=== PATIENT | female | born 1935 | race Caucasian/White ===

== ENCOUNTER 2021-08-02 14:15 | Inpatient (IN) ==
[2021-08-02 14:20] VITALS: BMI 25.7
[2021-08-02 14:49] LABS: BASOPHILS % (AUTO) 0.3 % (0.2-1.0); EOSINOPHILS % (AUTO) 0.8 % (0.9-2.9); HEMATOCRIT 45.1 % (36.0-47.0); HEMOGLOBIN 15.2 g/dL (12.0-16.0); LYMPHOCYTES # (AUTO) 0.8 X10^3/uL (1.3-2.9); MEAN CORPUSCULAR HEMOGLOBIN 29.1 pg (27.0-34.0); MEAN CORPUSCULAR HGB CONC 33.6 g/dL (33.0-35.0); MEAN CORPUSCULAR VOLUME 86.5 fL (80.0-100.0); MEAN PLATELET VOLUME 8.1 fL (7.4-11.0); MONOCYTES # (AUTO) 0.6 x10^3/uL (0.3-0.8); MONOCYTES % (AUTO) 11.7 % (0.0-13.0); NEUTROPHILS # (AUTO) 3.8 x10^3/uL (2.2-4.8); NEUTROPHILS % (AUTO) 72.2 % (42.0-75.0); RED BLOOD COUNT 5.21 X10^6/uL (3.5-5.4); RED CELL DISTRIBUTION WIDTH 14.2 % (11.6-16.5); WHITE BLOOD COUNT 5.3 X10^3/uL (3.6-10.0)
[2021-08-02 15:18] LABS: CHLORIDE 96 mmol/L (98-107); SODIUM 134 mmol/L (136-145)
--- NOTE | 2021-08-02 15:36 | CT ---
HISTORYPAIN, SWELLING NEAR COLOSTOMYSTUDYABDOMEN/PELVIS W/O CONCOMPARISONNoneTECHNIQUENon-contrasted axial CT images of the abdomen and pelvis were obtained and reformatted into coronal and sagittal planes for further evaluation.Radiation dose: 563.00 mGy-cm total DLPFINDINGSLung bases are clear.Trace pericardial effusion.Left coronary artery calcifications.Small sliding-type hiatal hernia.Stomach appears normal.Solid visceral organs of the upper abdomen are unremarkable.Multiple calcified gallstones in the dependent portion of the gallbladder with no imaging findings of acute cholecystitis.No intra or extrahepatic biliary dilatation.Unremarkable appearance of the kidneys.No hydronephrosis, hydroureter or ureteral calculus.Unremarkable appearance of the urinary bladder.Yi pouch in place.Status post total colectomy.Numerous loops of fluid and gas-filled moderately dilated small bowel throughout the abdomen as well as a peristomal hernia at the ostomy site in the right anterior abdominal wall.Transition to decompression is near the distal small-bowel loop exiting to the ostomy along the right side of the abdominal wall defect at the ostomy site.Reproductive structures are unremarkable.No pneumoperitoneum.No significant fluid collection.No adenopathy.No acute osseous abnormality.[id number]-kl-[id number] multilevel degenerative disc disease without vertebral body height loss.Multilevel moderate degenerative joint disease in the lower lumbar spine.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 Numerous loops of fluid and gas-filled moderately dilated small bowel throughout the abdomen as well as a peristomal hernia at the ostomy site in the right anterior abdominal wall. Transition to decompression is near the distal small-bowel loop exiting to the ostomy along the right side of the abdominal wall defect at the ostomy site; consistent with a mild mechanical obstruction.2. Cholelithiasis without imaging findings of acute cholecystitis.3. Small sliding-type hiatal hernia.Electronically signed by: Temo Scherer (Aug 02, 2021 15:34:37)
[2021-08-02 15:48] LABS: ALANINE AMINOTRANSFERASE 18 Units/L (12-78); ALBUMIN 3.4 g/dL (3.4-5.0); ALKALINE PHOSPHATASE 97 Units/L (46-116); ASPARTATE AMINO TRANSFERASE 20 Units/L (15-37); BLOOD UREA NITROGEN 33 mg/dL (7-18); CALCIUM 9.3 mg/dL (8.5-10.1); CARBON DIOXIDE 28.8 mmol/L (21-32); COR NA(FOR HYPERGLY) 134 mmol/L (136-145); CREATININE 1.93 mg/dL (0.55-1.02); TOTAL PROTEIN 7.1 g/dL (6.4-8.2); eGFR NON BLACK RACES 26 (>60)
[2021-08-02] MEDS ORDERED: MORPHINE SULFATE INJ 2 MG INJ IVP ONE (16:20)
[2021-08-02] MEDS ORDERED: ZOFRAN INJ 4 MG VIAL IVP ONE (16:20)
[2021-08-02] MEDS ORDERED: MORPHINE SULFATE INJ 2 MG INJ ONE (16:21)
[2021-08-02] MEDS ORDERED: ZOFRAN INJ 4 MG VIAL ONE (16:22)
--- NOTE | 2021-08-02 16:33 | ED.ABDFE ---
HPI Time Seen Time Seen by Provider: 08/02/21 14:40 PCP Primary Care Physician: GEORGE HPI Comment HPI Comment: An 85 y/o female presenting with onset of abdominal pain and swelling since yestreday. Also states that there has been no output into the colostomy bag today. Complaint Chief Complaint:: PT. C/O RIGHT SIDED ABDOMINAL PAIN WITH SWELLING. PT. HAS A COLOSTOMY TO RIGHT SIDE OF ABDOMEN WITH DECREASED OUTPUT TO COLOSTOMY TODAY. PT. C/O NAUSEA, WEAKNESS AND DIZZINESS. COVID-19 Coronavirus risk:travel/contact w/high risk person: No Has patient experienced Coronavirus symptoms: No Reviewed Nurses Notes Review: Yes Source History Provided: Patient and Family Member Mode of arrival Mode of Arrival: Wheelchair Timing Onset of Chief Complaint: 08/01/21 Came on: Gradually Location Location: RL Severity Severity: Mild and Moderate Context History of: Abdominal surgery Modifying factors Worsening Factors: Nothing Associated signs and symptoms Associated Signs and Symptoms: Nausea PMH PMH Past Medical History: Yes Past Medical History: Hypothyroidism Past Surgical History: Yes Surgical History: Abdominal Surgery and Other Past Surgical History Comment: COLOSTOMY, HIP REPLACEMENT Family History History of Family Medical Conditions: No Social History Does patient currently use any type of tobacco product: No Have you used tobacco products in the last 12 months: No Type of Tobacco Use: None Does any household member use tobacco: No Alcohol Use: None Do you use any recreational Drugs:: No Lives With: Spouse Lives Where: Home Travel Risk Coronavirus risk:travel/contact w/high risk person: No Has patient experienced Coronavirus symptoms: No Infectious screening In the last 2 months have you had wt loss of >10#?: NO Have you had fever, night sweats or hemotysis?: No Have you traveled outside the country in the last 6 months?: No Isolation: Standard ROS Review of Systems Constitutional: Weakness Eyes: No Symptoms Reported ENTM: No Symptoms Reported Respiratoy: No Symptoms Reported Cardiovascular: No Symptoms Reported Gastrointestinal/Abdominal: Abdominal Pain and Nausea Genitourinary: No Symptoms Reported Neurological: No Symptoms Reported Musculoskeletal: No Symptoms Reported Integumentary: No Symptoms Reported Hematologic/Lymphatic: No Symptoms Reported Endocrine: No Symptoms Reported Psychiatric: No Symptoms Reported PE Vital Signs Vitals: Temperature 97.3 F Pulse Rate 98 Respiratory Rate 20 Blood Pressure 127/59 O2 Sat by Pulse Oximetry 98 General Limitations: No Limitations General Appearance: Alert and In No Apparent Distress Head Head Exam: Normal Inspection, Atraumatic and Normocephalic Eyes Eye exam: Normal Appearance and EOMI ENT ENT Exam: Normal Exam, Normal Oropharynx, Normal External Ear Exam and Mucous Membranes Moist Neck Neck Exam: Normal Inspection, Full ROM and Trachea Midline Chest Chest Inspection: Normal Inspection and Symmetric Chest Wall Rise Respiratory Respiratory Exam: Normal Lung Sounds Bilat Cardiovascular Cardiovascular Exam: Regular Rate, Normal Rhythm, Normal Heart Sounds, +S1 and +S2 Abdominal Exam Abdominal Exam: Normal Inspection, Normal Bowel Sounds, Soft and Other (Rt. mid abdominal colostomy with some moderate swelling and temderness on its lateral side) Rectal Rectal Exam: Deferred Back Back Exam: Normal Inspection and Full ROM Extremeties Extremities Exam: Normal Inspection and Full ROM External Exam: Female: Deferred Neurologic Neurological Exam: Alert and Other (oriented to self) Psychiatric Psychiatric Exam: Normal Affect and Normal Mood Skin Skin Exam: Intact COURSE Reevaluation 1st: Unchanged Education/Counseling Education/Counseling: Patient, Family, Education and Counseling Educated On: Treatment, Diagnosis, Prognosis and Needs for Follow Up ROR Labs Reviewed Result Diagrams: 08/02/21 14:46 08/02/21 14:26 Laboratory: WBC 5.3 X10^3/uL (3.6-10.0) 08/02/21 14:46 RBC 5.21 X10^6/uL (3.5-5.4) 08/02/21 14:46 Hgb 15.2 g/dL (12.0-16.0) 08/02/21 14:46 Hct 45.1 % (36.0-47.0) 08/02/21 14:46 MCV 86.5 fL (80.0-100.0) 08/02/21 14:46 MCH 29.1 pg (27.0-34.0) 08/02/21 14:46 MCHC 33.6 g/dL (33.0-35.0) 08/02/21 14:46 RDW 14.2 % (11.6-16.5) 08/02/21 14:46 Plt Count 255 X10^3/uL (150.0-450.0) 08/02/21 14:46 MPV 8.1 fL (7.4-11.0) 08/02/21 14:46 Neut % (Auto) 72.2 % (42.0-75.0) 08/02/21 14:46 Lymph % (Auto) 15.0 % (21.0-51.0) L 08/02/21 14:46 [place] % (Auto) 11.7 % (0.0-13.0) 08/02/21 14:46 Eos % (Auto) 0.8 % (0.9-2.9) L 08/02/21 14:46 Baso % (Auto) 0.3 % (0.2-1.0) 08/02/21 14:46 Neut # (Auto) 3.8 x10^3/uL (2.2-4.8) 08/02/21 14:46 Lymph # (Auto) 0.8 X10^3/uL (1.3-2.9) L 08/02/21 14:46 [place] # (Auto) 0.6 x10^3/uL (0.3-0.8) 08/02/21 14:46 Eos # (Auto) 0.0 x10^3/uL (0.0-0.2) 08/02/21 14:46 Baso # (Auto) 0.0 X10^3/uL (0.0-0.1) 08/02/21 14:46 Absolute Nucleated RBC 0.1 /100WBC 08/02/21 14:46 Sodium 134 mmol/L (136-145) L 08/02/21 14:26 Corrected Sodium 134 mmol/L (136-145) L 08/02/21 14:26 Potassium 3.8 mmol/L (3.5-5.1) 08/02/21 14:26 Chloride 96 mmol/L (98-107) L 08/02/21 14:26 Carbon Dioxide 28.8 mmol/L (21-32) 08/02/21 14:26 BUN 33 mg/dL (7-18) H 08/02/21 14:26 Creatinine 1.93 mg/dL (0.55-1.02) H 08/02/21 14:26 Est GFR (MDRD) Af Amer 32 (>60) L 08/02/21 14:26 Est GFR (MDRD) Non-Af 26 (>60) L 08/02/21 14:26 Glucose 117 mg/dL (65-99) H 08/02/21 14:26 Lactic Acid 0.9 mmol/L (0.4-2.0) 08/02/21 15:55 Calcium 9.3 mg/dL (8.5-10.1) 08/02/21 14:26 Corrected Calcium TNP 08/02/21 14:26 Total Bilirubin 0.80 mg/dL (0.2-1.0) 08/02/21 14:26 AST 20 Units/L (15-37) 08/02/21 14:26 ALT 18 Units/L (12-78) 08/02/21 14:26 Alkaline Phosphatase 97 Units/L (46-116) 08/02/21 14:26 Total Protein 7.1 g/dL (6.4-8.2) 08/02/21 14:26 Albumin 3.4 g/dL (3.4-5.0) 08/02/21 14:26 Globulin 3.7 g/dL (2.5-4.5) 08/02/21 14:26 Albumin/Globulin Ratio 0.9 Ratio (1.1-2.1) L 08/02/21 14:26 SARS CoV-2 RNA Rapid PHIL Negative (NEGATIVE) 08/02/21 14:29 Opioid Opioid Risk Tool Age (Garo box if 16-45): No History of Preadolescent Sexual Abuse: No Total: 0 Total Score Risk Category: Low Risk Copyright: [facility] predicting aberrant behaviors Diagnosis Discharge Problem: Abdominal wall hernia at previous stoma site, Mechanical gastrointestinal obstruction Cholelithiasis Qualifiers: Cholelithiasis location: other site Biliary obstruction: without biliary obstruction Qualified Code(s): K80.80 - Other cholelithiasis without obstruction ADDITIONAL NOTES Additional Notes Additional Notes: Name: LESLEY SNYDERalin#: [id number]: [id number] : 1935Sex: FLocation: ER Order Number(s): [id number](s):ABDOMEN/PELVIS W/O CON Ordering Physician: EREN SEN Primary Care: NFD,None Service Date: 08/02/21 Service Time: 1510 HISTORY PAIN, SWELLING NEAR COLOSTOMY STUDY ABDOMEN/PELVIS W/O CON COMPARISON None TECHNIQUE Non-contrasted axial CT images of the abdomen and pelvis were obtained and reformatted into coronal and sagittal planes for further evaluation. Radiation dose: 563.00 mGy-cm total DLP FINDINGS Lung bases are clear. Trace pericardial effusion. Left coronary artery calcifications. Small sliding-type hiatal hernia. Stomach appears normal. Solid visceral organs of the upper abdomen are unremarkable. Multiple calcified gallstones in the dependent portion of the gallbladder with no imaging findings of acute cholecystitis. No intra or extrahepatic biliary dilatation. Unremarkable appearance of the kidneys. No hydronephrosis, hydroureter or ureteral calculus. Unremarkable appearance of the urinary bladder. Yi pouch in place. Status post total colectomy. Numerous loops of fluid and gas-filled moderately dilated small bowel throughout the abdomen as well as a peristomal hernia at the ostomy site in the right anterior abdominal wall. Transition to decompression is near the distal small-bowel loop exiting to the ostomy along the right side of the abdominal wall defect at the ostomy site. Reproductive structures are unremarkable. No pneumoperitoneum. No significant fluid collection. No adenopathy. No acute osseous abnormality. [id number] multilevel degenerative disc disease without vertebral body height loss. Multilevel moderate degenerative joint disease in the lower lumbar spine. 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 IMPRESSION 1. Numerous loops of fluid and gas-filled moderately dilated small bowel throughout the abdomen as well as a peristomal hernia at the ostomy site in the right anterior abdominal wall. Transition to decompression is near the distal small-bowel loop exiting to the ostomy along the right side of the abdominal wall defect at the ostomy site; consistent with a mild mechanical obstruction. 2. Cholelithiasis without imaging findings of acute cholecystitis. 3. Small sliding-type hiatal hernia. Electronically signed by: Temo Scherer (Aug 02, 2021 15:34:37) Report Electronically signed: 08/02/21 1536 CC: Eren Sen
[2021-08-02] MEDS ORDERED: NS 1,000 ML IV 1,000 ML ONE (19:21)
[2021-08-02] MEDS: NS 1,000 ML IV 1,000 ML IV SCH (20:17)
[2021-08-03] MEDS: NS 1,000 ML IV 1,000 ML IV SCH ×4 (05:06→23:59)
[2021-08-03] MEDS: SYNTHROID 100 mcg TAB PO SCH (06:14)
[2021-08-03 06:25] LABS: BASOPHILS % (AUTO) 0.3 % (0.2-1.0); EOSINOPHILS # (AUTO) 0.2 x10^3/uL (0.0-0.2); EOSINOPHILS % (AUTO) 3.4 % (0.9-2.9); HEMATOCRIT 38.9 % (36.0-47.0); HEMOGLOBIN 13.1 g/dL (12.0-16.0); LYMPHOCYTES # (AUTO) 0.8 X10^3/uL (1.3-2.9); MEAN CORPUSCULAR HEMOGLOBIN 29.1 pg (27.0-34.0); MEAN CORPUSCULAR HGB CONC 33.6 g/dL (33.0-35.0); MEAN CORPUSCULAR VOLUME 86.5 fL (80.0-100.0); MEAN PLATELET VOLUME 8.4 fL (7.4-11.0); MONOCYTES # (AUTO) 0.7 x10^3/uL (0.3-0.8); MONOCYTES % (AUTO) 10.4 % (0.0-13.0); NEUTROPHILS % (AUTO) 73.9 % (42.0-75.0); RED BLOOD COUNT 4.49 X10^6/uL (3.5-5.4); RED CELL DISTRIBUTION WIDTH 14.2 % (11.6-16.5); WHITE BLOOD COUNT 6.8 X10^3/uL (3.6-10.0)
[2021-08-03 06:41] LABS: ALANINE AMINOTRANSFERASE 12 Units/L (12-78); ALBUMIN 2.4 g/dL (3.4-5.0); ALKALINE PHOSPHATASE 73 Units/L (46-116); ASPARTATE AMINO TRANSFERASE 14 Units/L (15-37); BLOOD UREA NITROGEN 37 mg/dL (7-18); CALCIUM 8.3 mg/dL (8.5-10.1); CARBON DIOXIDE 29.6 mmol/L (21-32); CHLORIDE 103 mmol/L (98-107); COR CA(FOR HYPOALB) 9.6 mg/dL (8.5-10.1); CREATININE 1.51 mg/dL (0.55-1.02); SODIUM 141 mmol/L (136-145); TOTAL PROTEIN 5.9 g/dL (6.4-8.2); eGFR NON BLACK RACES 35 (>60)
--- NOTE | 2021-08-03 10:51 | DR.H&P ---
H&P History & Physical for Day of: H&P Date: 08/03/21 Chief Complaint Chief Complaint: abdominal pain Allergies Allergies Allergy/AdvReac Type Severity Reaction Status Date / Time No Known Drug Allergies Allergy Verified 08/02/21 14:20 History of Present Illness History of Present Illness: Ms Borjas is an 85y/o female with a hx of colostomy presented with worsening abdominal pain and no output from the ostomy for the past 3 days. She also reports increased abdominal distension. Denies nausea or vomiting. Denies fever or chills. CTAP showed peristomal hernia with mechanical obstruction. Dr Mcgowan was contacted in the ER and patient was admitted for further treatment. She was kept NPO, started on IVF and pain control. This morning, patient states the abdominal pain is a lot better. She is resting comfortably with no distress. Patient is not a good historian and is not able to state the reason why she has colostomy. She states she has had it for a long time and never had any issues. Labs/imaging reviewed Plan: follow Dr. Mcgowan's recommendation. Continue IVF, pain control and NPO status. Patient's renal function improving. Monitor AM labs/imaging. Past Medical History Past Medical History: Hypothyroidism Past Surgical History Surgical History: Abdominal Surgery, Joint Replacement and Other Social History Does patient currently use any type of tobacco product: No Have you used tobacco products in the last 12 months: No Type of Tobacco Use: None Does any household member use tobacco: No Alcohol Use: None Drug Use: None Prescription drug monitoring program results: PDMP reviewed and no concerns identified Medications Home Medications: No Known Drug Allergies Allergy (Verified 08/02/21 14:20) CONTINUE taking the following medications levothyroxine 100 mcg PO DAILY 08/02/21 [History] Labs Result Diagrams: 08/03/21 05:47 08/03/21 05:47 Labs: Laboratory WBC 6.8 X10^3/uL (3.6-10.0) 08/03/21 05:47 RBC 4.49 X10^6/uL (3.5-5.4) 08/03/21 05:47 Hgb 13.1 g/dL (12.0-16.0) D 08/03/21 05:47 Hct 38.9 % (36.0-47.0) 08/03/21 05:47 MCV 86.5 fL (80.0-100.0) 08/03/21 05:47 MCH 29.1 pg (27.0-34.0) 08/03/21 05:47 MCHC 33.6 g/dL (33.0-35.0) 08/03/21 05:47 RDW 14.2 % (11.6-16.5) 08/03/21 05:47 Plt Count 223 X10^3/uL (150.0-450.0) 08/03/21 05:47 MPV 8.4 fL (7.4-11.0) 08/03/21 05:47 Neut % (Auto) 73.9 % (42.0-75.0) 08/03/21 05:47 Lymph % (Auto) 12.0 % (21.0-51.0) L 08/03/21 05:47 [place] % (Auto) 10.4 % (0.0-13.0) 08/03/21 05:47 Eos % (Auto) 3.4 % (0.9-2.9) H 08/03/21 05:47 Baso % (Auto) 0.3 % (0.2-1.0) 08/03/21 05:47 Neut # (Auto) 5.0 x10^3/uL (2.2-4.8) H 08/03/21 05:47 Lymph # (Auto) 0.8 X10^3/uL (1.3-2.9) L 08/03/21 05:47 [place] # (Auto) 0.7 x10^3/uL (0.3-0.8) 08/03/21 05:47 Eos # (Auto) 0.2 x10^3/uL (0.0-0.2) 08/03/21 05:47 Baso # (Auto) 0.0 X10^3/uL (0.0-0.1) 08/03/21 05:47 Absolute Nucleated RBC 0.0 /100WBC 08/03/21 05:47 Sodium 141 mmol/L (136-145) 08/03/21 05:47 Corrected Sodium TNP 08/03/21 05:47 Potassium 3.7 mmol/L (3.5-5.1) 08/03/21 05:47 Chloride 103 mmol/L (98-107) 08/03/21 05:47 Carbon Dioxide 29.6 mmol/L (21-32) 08/03/21 05:47 BUN 37 mg/dL (7-18) H 08/03/21 05:47 Creatinine 1.51 mg/dL (0.55-1.02) H 08/03/21 05:47 Est GFR (MDRD) Af Amer 42 (>60) L 08/03/21 05:47 Est GFR (MDRD) Non-Af 35 (>60) L 08/03/21 05:47 Glucose 92 mg/dL (65-99) 08/03/21 05:47 Lactic Acid 0.9 mmol/L (0.4-2.0) 08/02/21 15:55 Calcium 8.3 mg/dL (8.5-10.1) L 08/03/21 05:47 Corrected Calcium 9.6 mg/dL (8.5-10.1) 08/03/21 05:47 Total Bilirubin 0.70 mg/dL (0.2-1.0) 08/03/21 05:47 AST 14 Units/L (15-37) L 08/03/21 05:47 ALT 12 Units/L (12-78) 08/03/21 05:47 Alkaline Phosphatase 73 Units/L (46-116) 08/03/21 05:47 Total Protein 5.9 g/dL (6.4-8.2) L 08/03/21 05:47 Albumin 2.4 g/dL (3.4-5.0) L 08/03/21 05:47 Globulin 3.5 g/dL (2.5-4.5) 08/03/21 05:47 Albumin/Globulin Ratio 0.7 Ratio (1.1-2.1) L 08/03/21 05:47 SARS CoV-2 RNA Rapid PHIL Negative (NEGATIVE) 08/02/21 14:29 Review of Systems Constitutional: Weakness Eyes: No Symptoms Reported ENT: No Symptoms Reported Respiratory: No Symptoms Reported Cardiovascular: No Symptoms Reported Gastrointestinal: Nausea and Abdominal Pain Genitourinary: No Symptoms Reported Musculoskeletal: No Symptoms Reported Skin: No Symptoms Reported Neurological: No Symptoms Reported Physical Exam Vital Signs: Temperature 98.0 F Pulse Rate [Left Brachial] 94 Pulse Rate 96 Respiratory Rate 20 Blood Pressure [Left Arm] 129/61 Blood Pressure 117/58 O2 Sat by Pulse Oximetry 95 Oriented: Normal Eyes: Normal Ear: Normal Nose: Normal Throat: Normal Respiratory: Clear Throughout Cardiovascular: Normal Auscultation: Bowel Sounds: Decreased Palpation: Other Tenderness: Periumbilical, Mild and Other (ostomy noted, no surrouding erythema, non-tender, no output ) Skin: Decreased Turgur Musculoskeletal: Normal Psychiatric: Normal Mood Description: Calm Affect: Normal Speech Pattern: Clear and Appropriate Assessment/Plan (1) TONI (acute kidney injury): Status: Acute (2) Abdominal wall hernia at previous stoma site: Status: Acute (3) Mechanical gastrointestinal obstruction: Status: Acute (4) Cholelithiasis: Qualifiers: Biliary obstruction: without biliary obstruction Cholelithiasis location: other site Qualified Code(s): K80.80 - Other cholelithiasis without obstruction Status: Acute (5) Hypothyroidism: Qualifiers: Hypothyroidism type: acquired Qualified Code(s): E03.9 - Hypothyroidism, unspecified Status: Acute Review H&P Reviewed: Yes Patient was examined?: Yes
--- NOTE | 2021-08-03 11:14 | RAD ---
HISTORYPRE OP CLEARANCE, STOMA REVISIONSTUDYCHEST x-ray, 1 VIEWCOMPARISONNoneFINDINGSHeart is normal in size. Likely mild eventration of diaphragm. Prominent cardiophrenic fat pad is suspected on the left. Possible COPD changes. Calcification is seen of the aortic arch. No pneumothorax is seen. Prominent arthritic changes are seen in the left shoulder.IMPRESSIONPossible COPD changes.Electronically signed by: Adonis Nunez (Aug 03, 2021 11:13:10)
[2021-08-03] MEDS ORDERED: MAGNESIUM SULFATE 1 GRAM/100 mL PREMIX 1 G/100 ML BAG IV ONE (12:31)
[2021-08-03] MEDS ORDERED: FENTANYL VIAL INJ 100 mcg ONE (12:31)
[2021-08-03] MEDS ORDERED: LR 1,000 ML IV 1,000 ML IV ONE (13:04)
[2021-08-03] MEDS ORDERED: ANCEF 1 GRAM IV PREMIX* 1 G/50 ML BAG IV ONE (13:05)
[2021-08-03] MEDS ORDERED: MARCAINE 0.5% ONE (13:31)
[2021-08-03] MEDS ORDERED: BETADINE SOLN ONE (13:43)
[2021-08-03] MEDS ORDERED: LEVAQUIN PREMIX IV 500 MG 500 MG/100 ML BAG IV ONE (14:03)
[2021-08-03] MEDS ORDERED: ANCEF VIAL 1 GRAM ONE ×2 (15:13→20:05)
[2021-08-03] MEDS ORDERED: BRIDION ONE (15:17)
[2021-08-03] MEDS ORDERED: ZEMURON 50 MG VIAL ONE (15:38)
[2021-08-03] MEDS ORDERED: LACRI-LUBE S.O.P. ONE (15:38)
[2021-08-03] MEDS ORDERED: DECADRON INJ ONE (15:38)
[2021-08-03] MEDS ORDERED: NEO-SYNEPHRINE INJ ONE (15:38)
[2021-08-03] MEDS ORDERED: VERSED ONE (15:38)
[2021-08-03] MEDS ORDERED: ZOFRAN INJ 4 MG VIAL ONE (15:38)
[2021-08-03] MEDS ORDERED: XYLOCAINE 2 % (PLAIN) ONE (15:38)
[2021-08-03] MEDS ORDERED: DIPRIVAN VIAL ONE (15:38)
[2021-08-03] MEDS ORDERED: KETAMINE HCL ONE (15:38)
[2021-08-03] MEDS ORDERED: AMIDATE INJ 40 MG VIAL ONE (15:38)
[2021-08-03] MEDS ORDERED: PHENERGAN INJ 25 MG IM PRN (15:45)
[2021-08-03] MEDS ORDERED: ZOFRAN INJ 4 MG VIAL IVP PRN (15:45)
[2021-08-03] MEDS ORDERED: BENADRYL INJ 50 MG VIAL IVP PRN (15:45)
[2021-08-03] MEDS: DILAUDID INJ IVP PRN ×2 (16:20→16:35)
[2021-08-03] MEDS ORDERED: DILAUDID INJ ONE (16:22)
[2021-08-03] MEDS ORDERED: NS 50 ML IV + SPIKE MINIBAG* 50 ML IV ONE (20:05)
[2021-08-03] MEDS: D5 1/2 NS 1,000 ML 1,000 ML IV SCH (20:45)
[2021-08-03] MEDS: ZOFRAN INJ 4 MG VIAL IVP PRN (20:46)
[2021-08-03] MEDS: MORPHINE SULFATE INJ 2 MG INJ IVP PRN (20:47)
[2021-08-03] MEDS: ANCEF VIAL 1 GRAM IVP SCH (21:03)
[2021-08-04] MEDS: D5 1/2 NS 1,000 ML 1,000 ML IV SCH ×3 (02:39→19:48)
[2021-08-04] MEDS: MORPHINE SULFATE INJ 2 MG INJ IVP PRN ×3 (02:40→19:50)
[2021-08-04] MEDS: ZOFRAN INJ 4 MG VIAL IVP PRN ×2 (02:40→19:50)
[2021-08-04] MEDS: ANCEF VIAL 1 GRAM IVP SCH ×3 (05:13→21:05)
[2021-08-04 06:16] LABS: BASOPHILS % (AUTO) 0.1 % (0.2-1.0); HEMATOCRIT 38.5 % (36.0-47.0); HEMOGLOBIN 12.8 g/dL (12.0-16.0); LYMPHOCYTES # (AUTO) 0.5 X10^3/uL (1.3-2.9); LYMPHOCYTES % (AUTO) 4.7 % (21.0-51.0); MEAN CORPUSCULAR HEMOGLOBIN 29.2 pg (27.0-34.0); MEAN CORPUSCULAR HGB CONC 33.4 g/dL (33.0-35.0); MEAN CORPUSCULAR VOLUME 87.5 fL (80.0-100.0); MEAN PLATELET VOLUME 8.7 fL (7.4-11.0); MONOCYTES # (AUTO) 0.5 x10^3/uL (0.3-0.8); MONOCYTES % (AUTO) 5.4 % (0.0-13.0); NEUTROPHILS # (AUTO) 8.6 x10^3/uL (2.2-4.8); NEUTROPHILS % (AUTO) 89.8 % (42.0-75.0); RED CELL DISTRIBUTION WIDTH 13.9 % (11.6-16.5); WHITE BLOOD COUNT 9.6 X10^3/uL (3.6-10.0)
[2021-08-04 06:20] LABS: ALBUMIN 2.2 g/dL (3.4-5.0); CARBON DIOXIDE 28.6 mmol/L (21-32); COR CA(FOR HYPOALB) 9.4 mg/dL (8.5-10.1); CREATININE 1.15 mg/dL (0.55-1.02); TOTAL PROTEIN 5.7 g/dL (6.4-8.2)
[2021-08-04] MEDS: SYNTHROID 100 mcg TAB PO SCH (07:46)
[2021-08-04] MEDS: LOVENOX INJ 40 MG SYR SC SCH (09:09)
[2021-08-04] MEDS: LEVAQUIN PREMIX IV 250 MG 250 MG/50 ML BAG IV SCH (09:09)
--- NOTE | 2021-08-04 09:32 | DR.PROGNOT ---
Hospital Progress Notes - Progress Note for Day of: Progress Note Date: 08/04/21 - Chief Complaint Chief Complaint: post op lparatomy , reoair of incarcerated stoma hernia . doing very well . pulled her NGT last night . lab work is normal . afebrile . - Past Medical Family Social History Past Med/Fam/Surg Hx: No changes since H&P Allergies: Allergies No Known Drug Allergies Allergy (Verified 08/02/21 14:20) - Review Of Systems ROS: No change since H&P - Vital Signs Vital Signs: Temperature 98.0 F Pulse Rate [Left Brachial] 80 Pulse Rate 96 Respiratory Rate 18 Blood Pressure [Left Arm] 135/63 Blood Pressure 140/64 O2 Sat by Pulse Oximetry 98 - Physical Exam Oriented: Normal Eyes: Normal Ear: Normal Nose: Normal Throat: Normal Cardiovascular: Normal GI:Auscultation: Decreased GI:Palpation: Normal, Other GI: Tenderness: Periumbilical, Mild, Other (soft abdomen . diffuse tenderness .. BS+ .) Skin: Decreased Turgur Musculoskeletal: Normal Psychiatric: Normal Mood Description: Calm, Appropriate Affect: Normal Speech Pattern: Clear, Appropriate - Laboratory and Diagnostics Result Diagrams: 08/04/21 05:17 08/04/21 05:17 Labs: Laboratory WBC 9.6 X10^3/uL (3.6-10.0) 08/04/21 05:17 RBC 4.40 X10^6/uL (3.5-5.4) 08/04/21 05:17 Hgb 12.8 g/dL (12.0-16.0) 08/04/21 05:17 Hct 38.5 % (36.0-47.0) 08/04/21 05:17 MCV 87.5 fL (80.0-100.0) 08/04/21 05:17 MCH 29.2 pg (27.0-34.0) 08/04/21 05:17 MCHC 33.4 g/dL (33.0-35.0) 08/04/21 05:17 RDW 13.9 % (11.6-16.5) 08/04/21 05:17 Plt Count 221 X10^3/uL (150.0-450.0) 08/04/21 05:17 MPV 8.7 fL (7.4-11.0) 08/04/21 05:17 Neut % (Auto) 89.8 % (42.0-75.0) H 08/04/21 05:17 Lymph % (Auto) 4.7 % (21.0-51.0) L 08/04/21 05:17 [place] % (Auto) 5.4 % (0.0-13.0) 08/04/21 05:17 Eos % (Auto) 0.0 % (0.9-2.9) L 08/04/21 05:17 Baso % (Auto) 0.1 % (0.2-1.0) L 08/04/21 05:17 Neut # (Auto) 8.6 x10^3/uL (2.2-4.8) H 08/04/21 05:17 Lymph # (Auto) 0.5 X10^3/uL (1.3-2.9) L 08/04/21 05:17 [place] # (Auto) 0.5 x10^3/uL (0.3-0.8) 08/04/21 05:17 Eos # (Auto) 0.0 x10^3/uL (0.0-0.2) 08/04/21 05:17 Baso # (Auto) 0.0 X10^3/uL (0.0-0.1) 08/04/21 05:17 Absolute Nucleated RBC 0.0 /100WBC 08/04/21 05:17 Sodium 140 mmol/L (136-145) 08/04/21 05:17 Corrected Sodium 142 mmol/L (136-145) 08/04/21 05:17 Potassium 4.2 mmol/L (3.5-5.1) 08/04/21 05:17 Chloride 104 mmol/L (98-107) 08/04/21 05:17 Carbon Dioxide 28.6 mmol/L (21-32) 08/04/21 05:17 BUN 32 mg/dL (7-18) H 08/04/21 05:17 Creatinine 1.15 mg/dL (0.55-1.02) H 08/04/21 05:17 Est GFR (MDRD) Af Amer 58 (>60) L 08/04/21 05:17 Est GFR (MDRD) Non-Af 48 (>60) L 08/04/21 05:17 Glucose 200 mg/dL (65-99) H 08/04/21 05:17 Lactic Acid 0.9 mmol/L (0.4-2.0) 08/02/21 15:55 Calcium 8.0 mg/dL (8.5-10.1) L 08/04/21 05:17 Corrected Calcium 9.4 mg/dL (8.5-10.1) 08/04/21 05:17 Total Bilirubin 0.30 mg/dL (0.2-1.0) 08/04/21 05:17 AST 12 Units/L (15-37) L 08/04/21 05:17 ALT 11 Units/L (12-78) L 08/04/21 05:17 Alkaline Phosphatase 74 Units/L (46-116) 08/04/21 05:17 Total Protein 5.7 g/dL (6.4-8.2) L 08/04/21 05:17 Albumin 2.2 g/dL (3.4-5.0) L 08/04/21 05:17 Globulin 3.5 g/dL (2.5-4.5) 08/04/21 05:17 Albumin/Globulin Ratio 0.6 Ratio (1.1-2.1) L 08/04/21 05:17 SARS CoV-2 RNA Rapid PHIL Negative (NEGATIVE) 08/02/21 14:29 Tissue Pathology To follow 08/03/21 15:10 - Assessment and Plan 1: SBO 2nd to incarcerate stoma hernia . s/p surgery . OOB , may have water . keep the catheter today , same IV ABT for 24h jes because of stoma contamination . - Problem Patient Problems: Patient Problems Abdominal wall hernia at previous stoma site (Acute) K43.9 Mechanical gastrointestinal obstruction (Acute) K56.609 Cholelithiasis (Acute) K80.20
--- NOTE | 2021-08-04 10:52 | PCM.PROG ---
Progress Note Progress Note for Day of Date of Exam: 08/04/21 Subjective Subjective: POD#1 s/p laparotomy and incarcerated stomal hernia repair Patient seen at bedside. She had an NGT post op but she pulled it out last night. Patient is doing well post-op. She reports minimal pain. There is some output in the ostomy. MITRA drain intact. Labs reviewed Plan: continue post-op care, follow Dr Mcgowan's recommendation. Continue pain control. Continue hydration and antibiotics. Monitor ostomy and MITRA drain output. Monitor AM labs/imaging. Past Medical Family Social History Past Med/Fam/Surg Hx: No changes since H&P Allergies: Allergies No Known Drug Allergies Allergy (Verified 08/02/21 14:20) Review of Systems ROS: No change since H&P Vital Signs and I&O's Vital Signs: Temperature 98.0 F Pulse Rate [Left Brachial] 80 Pulse Rate 96 Respiratory Rate 18 Blood Pressure [Left Arm] 135/63 Blood Pressure 140/64 O2 Sat by Pulse Oximetry 98 Intake and Output: Intake & Output 08/01/21 08/02/21 08/03/21 08/04/21 23:59 23:59 23:59 23:59 Intake Total 300 / 300 2039 / 2039 868 / 868 Output Total 435 / 435 285 / 285 Balance 300 / 300 1604 / 1604 583 / 583 Physical Exam Oriented: Normal Eyes: Normal Ear: Normal Nose: Normal Throat: Normal Respiratory: Normal Cardiovascular: Normal Auscultation: Bowel Sounds: Normal and Other (some ostomy output, MITRA drain with serosanguinous drainage ) Tenderness: Normal Skin: Decreased Turgur Musculoskeletal: Normal Psychiatric: Normal Mood Description: Calm and Appropriate Affect: Normal Speech Pattern: Clear and Appropriate Laboratory and Diagnostics Result Diagrams: 08/04/21 05:17 08/04/21 05:17 Labs: Laboratory WBC 9.6 X10^3/uL (3.6-10.0) 08/04/21 05:17 RBC 4.40 X10^6/uL (3.5-5.4) 08/04/21 05:17 Hgb 12.8 g/dL (12.0-16.0) 08/04/21 05:17 Hct 38.5 % (36.0-47.0) 08/04/21 05:17 MCV 87.5 fL (80.0-100.0) 08/04/21 05:17 MCH 29.2 pg (27.0-34.0) 08/04/21 05:17 MCHC 33.4 g/dL (33.0-35.0) 08/04/21 05:17 RDW 13.9 % (11.6-16.5) 08/04/21 05:17 Plt Count 221 X10^3/uL (150.0-450.0) 08/04/21 05:17 MPV 8.7 fL (7.4-11.0) 08/04/21 05:17 Neut % (Auto) 89.8 % (42.0-75.0) H 08/04/21 05:17 Lymph % (Auto) 4.7 % (21.0-51.0) L 08/04/21 05:17 [place] % (Auto) 5.4 % (0.0-13.0) 08/04/21 05:17 Eos % (Auto) 0.0 % (0.9-2.9) L 08/04/21 05:17 Baso % (Auto) 0.1 % (0.2-1.0) L 08/04/21 05:17 Neut # (Auto) 8.6 x10^3/uL (2.2-4.8) H 08/04/21 05:17 Lymph # (Auto) 0.5 X10^3/uL (1.3-2.9) L 08/04/21 05:17 [place] # (Auto) 0.5 x10^3/uL (0.3-0.8) 08/04/21 05:17 Eos # (Auto) 0.0 x10^3/uL (0.0-0.2) 08/04/21 05:17 Baso # (Auto) 0.0 X10^3/uL (0.0-0.1) 08/04/21 05:17 Absolute Nucleated RBC 0.0 /100WBC 08/04/21 05:17 Sodium 140 mmol/L (136-145) 08/04/21 05:17 Corrected Sodium 142 mmol/L (136-145) 08/04/21 05:17 Potassium 4.2 mmol/L (3.5-5.1) 08/04/21 05:17 Chloride 104 mmol/L (98-107) 08/04/21 05:17 Carbon Dioxide 28.6 mmol/L (21-32) 08/04/21 05:17 BUN 32 mg/dL (7-18) H 08/04/21 05:17 Creatinine 1.15 mg/dL (0.55-1.02) H 08/04/21 05:17 Est GFR (MDRD) Af Amer 58 (>60) L 08/04/21 05:17 Est GFR (MDRD) Non-Af 48 (>60) L 08/04/21 05:17 Glucose 200 mg/dL (65-99) H 08/04/21 05:17 Lactic Acid 0.9 mmol/L (0.4-2.0) 08/02/21 15:55 Calcium 8.0 mg/dL (8.5-10.1) L 08/04/21 05:17 Corrected Calcium 9.4 mg/dL (8.5-10.1) 08/04/21 05:17 Total Bilirubin 0.30 mg/dL (0.2-1.0) 08/04/21 05:17 AST 12 Units/L (15-37) L 08/04/21 05:17 ALT 11 Units/L (12-78) L 08/04/21 05:17 Alkaline Phosphatase 74 Units/L (46-116) 08/04/21 05:17 Total Protein 5.7 g/dL (6.4-8.2) L 08/04/21 05:17 Albumin 2.2 g/dL (3.4-5.0) L 08/04/21 05:17 Globulin 3.5 g/dL (2.5-4.5) 08/04/21 05:17 Albumin/Globulin Ratio 0.6 Ratio (1.1-2.1) L 08/04/21 05:17 SARS CoV-2 RNA Rapid PHIL Negative (NEGATIVE) 08/02/21 14:29 Tissue Pathology To follow 08/03/21 15:10 Plan (1) TONI (acute kidney injury): Status: Acute (2) Abdominal wall hernia at previous stoma site: Status: Acute (3) Mechanical gastrointestinal obstruction: Status: Acute (4) Cholelithiasis: Status: Acute Qualifiers: Biliary obstruction: without biliary obstruction Cholelithiasis location: other site Qualified Code(s): K80.80 - Other cholelithiasis without o bstruction (5) Hypothyroidism: Status: Acute Qualifiers: Hypothyroidism type: acquired Qualified Code(s): E03.9 - Hypothyroidism, unspecified
[2021-08-04] MEDS ORDERED: NS 50 ML IV + SPIKE MINIBAG* 50 ML IV ONE (13:35)
[2021-08-04] MEDS ORDERED: BUTT CREAM (COMPOUND) TOP PRN (22:02)
[2021-08-04] MEDS ORDERED: BUTT CREAM (COMPOUND) ONE (22:08)
[2021-08-05] MEDS: ZOFRAN INJ 4 MG VIAL IVP PRN ×2 (03:07→19:17)
[2021-08-05] MEDS: D5 1/2 NS 1,000 ML 1,000 ML IV SCH ×3 (03:08→16:55)
[2021-08-05] MEDS: MORPHINE SULFATE INJ 2 MG INJ IVP PRN (03:08)
[2021-08-05] MEDS: ANCEF VIAL 1 GRAM IVP SCH ×3 (05:02→21:26)
[2021-08-05] MEDS: SYNTHROID 100 mcg TAB PO SCH (05:39)
[2021-08-05 06:57] LABS: BASOPHILS % (AUTO) 0.4 % (0.2-1.0); HEMATOCRIT 36.1 % (36.0-47.0); HEMOGLOBIN 11.9 g/dL (12.0-16.0); LYMPHOCYTES # (AUTO) 0.9 X10^3/uL (1.3-2.9); LYMPHOCYTES % (AUTO) 8.7 % (21.0-51.0); MEAN CORPUSCULAR HEMOGLOBIN 28.9 pg (27.0-34.0); MEAN CORPUSCULAR VOLUME 87.8 fL (80.0-100.0); MEAN PLATELET VOLUME 9.3 fL (7.4-11.0); MONOCYTES % (AUTO) 9.9 % (0.0-13.0); NEUTROPHILS # (AUTO) 8.6 x10^3/uL (2.2-4.8); RED BLOOD COUNT 4.11 X10^6/uL (3.5-5.4); WHITE BLOOD COUNT 10.6 X10^3/uL (3.6-10.0)
[2021-08-05 07:21] LABS: ALANINE AMINOTRANSFERASE 9 Units/L (12-78); ALKALINE PHOSPHATASE 73 Units/L (46-116); ASPARTATE AMINO TRANSFERASE 12 Units/L (15-37); BLOOD UREA NITROGEN 20 mg/dL (7-18); CALCIUM 8.2 mg/dL (8.5-10.1); CARBON DIOXIDE 27.7 mmol/L (21-32); CHLORIDE 104 mmol/L (98-107); COR CA(FOR HYPOALB) 9.8 mg/dL (8.5-10.1); COR NA(FOR HYPERGLY) 139 mmol/L (136-145); SODIUM 138 mmol/L (136-145); TOTAL PROTEIN 5.5 g/dL (6.4-8.2); eGFR NON BLACK RACES > 60 (>60)
[2021-08-05 07:59] LABS: BAND NEUTROPHILS % 2 % (0-10); PLATELET MORPHOLOGY COMMENT NORMAL (NORMAL)
[2021-08-05] MEDS: LEVAQUIN PREMIX IV 250 MG 250 MG/50 ML BAG IV SCH (09:32)
[2021-08-05] MEDS: LOVENOX INJ 40 MG SYR SC SCH (09:32)
--- NOTE | 2021-08-05 09:33 | PCM.PROG ---
Progress Note Progress Note for Day of Date of Exam: 08/05/21 Subjective Subjective: POD#2 s/p laparotomy and incarcerated stomal hernia repair Patient seen at bedside, no events overnight. She reports minimal pain. There is more output in the ostomy. MITRA drain intact. She has been able to tolerate ice chips and water. Labs reviewed Plan: continue post-op care, follow Dr Mcgowan's recommendation. Continue pain control. Diet as per Dr. Mcgowan. Continue hydration and antibiotics. Monitor ostomy and MITRA drain output. Monitor AM labs/imaging. Past Medical Family Social History Past Med/Fam/Surg Hx: No changes since H&P Allergies: Allergies No Known Drug Allergies Allergy (Verified 08/02/21 14:20) Review of Systems ROS: No change since H&P Vital Signs and I&O's Vital Signs: Temperature 98.5 F Pulse Rate [Left Brachial] 78 Pulse Rate 96 Respiratory Rate 18 Blood Pressure [Left Arm] 134/67 Blood Pressure 140/64 O2 Sat by Pulse Oximetry 100 Intake and Output: Intake & Output 08/02/21 08/03/21 08/04/21 08/05/21 23:59 23:59 23:59 23:59 Intake Total 300 / 300 2039 / 2039 3073 / 3073 844 / 844 Output Total 435 / 435 720 / 720 510 / 510 Balance 300 / 300 1604 / 1604 2353 / 2353 334 / 334 Physical Exam Oriented: Normal Eyes: Normal Ear: Normal Nose: Normal Throat: Normal Respiratory: Normal Cardiovascular: Normal Auscultation: Bowel Sounds: Normal and Other (brown stool noted in the ostomy, MITRA drain with minimal drainage ) Tenderness: Normal Skin: Decreased Turgur Musculoskeletal: Normal Psychiatric: Normal Mood Description: Calm and Appropriate Affect: Normal Speech Pattern: Clear and Appropriate Laboratory and Diagnostics Result Diagrams: 08/05/21 05:46 08/05/21 05:46 Labs: Laboratory WBC 10.6 X10^3/uL (3.6-10.0) H 08/05/21 05:46 RBC 4.11 X10^6/uL (3.5-5.4) 08/05/21 05:46 Hgb 11.9 g/dL (12.0-16.0) L 08/05/21 05:46 Hct 36.1 % (36.0-47.0) 08/05/21 05:46 MCV 87.8 fL (80.0-100.0) 08/05/21 05:46 MCH 28.9 pg (27.0-34.0) 08/05/21 05:46 MCHC 33.0 g/dL (33.0-35.0) 08/05/21 05:46 RDW 14.0 % (11.6-16.5) 08/05/21 05:46 Plt Count 229 X10^3/uL (150.0-450.0) 08/05/21 05:46 Plt Count Comment Adequate (ADEQUATE) 08/05/21 05:46 MPV 9.3 fL (7.4-11.0) 08/05/21 05:46 Neut % (Auto) 81.0 % (42.0-75.0) H 08/05/21 05:46 Lymph % (Auto) 8.7 % (21.0-51.0) L 08/05/21 05:46 [place] % (Auto) 9.9 % (0.0-13.0) 08/05/21 05:46 Eos % (Auto) 0.0 % (0.9-2.9) L 08/05/21 05:46 Baso % (Auto) 0.4 % (0.2-1.0) 08/05/21 05:46 Neut # (Auto) 8.6 x10^3/uL (2.2-4.8) H 08/05/21 05:46 Lymph # (Auto) 0.9 X10^3/uL (1.3-2.9) L 08/05/21 05:46 [place] # (Auto) 1.0 x10^3/uL (0.3-0.8) H 08/05/21 05:46 Eos # (Auto) 0.0 x10^3/uL (0.0-0.2) 08/05/21 05:46 Baso # (Auto) 0.0 X10^3/uL (0.0-0.1) 08/05/21 05:46 Absolute Nucleated RBC 0.0 /100WBC 08/05/21 05:46 Total Counted 100 08/05/21 05:46 Neutrophils % (Manual) 84 % (39-76) H 08/05/21 05:46 Band Neutrophils % 2 % (0-10) 08/05/21 05:46 Lymphocytes % (Manual) 6 % (13-43) L 08/05/21 05:46 Monocytes % (Manual) 8 % (4-9) 08/05/21 05:46 Plt Morphology Comment Normal (NORMAL) 08/05/21 05:46 RBC Morphology Normal (NORMAL) 08/05/21 05:46 Sodium 138 mmol/L (136-145) 08/05/21 05:46 Corrected Sodium 139 mmol/L (136-145) 08/05/21 05:46 Potassium 4.0 mmol/L (3.5-5.1) 08/05/21 05:46 Chloride 104 mmol/L (98-107) 08/05/21 05:46 Carbon Dioxide 27.7 mmol/L (21-32) 08/05/21 05:46 BUN 20 mg/dL (7-18) H 08/05/21 05:46 Creatinine 0.90 mg/dL (0.55-1.02) 08/05/21 05:46 Est GFR (MDRD) Af Amer > 60 (>60) 08/05/21 05:46 Est GFR (MDRD) Non-Af > 60 (>60) 08/05/21 05:46 Glucose 131 mg/dL (65-99) H 08/05/21 05:46 Lactic Acid 0.9 mmol/L (0.4-2.0) 08/02/21 15:55 Calcium 8.2 mg/dL (8.5-10.1) L 08/05/21 05:46 Corrected Calcium 9.8 mg/dL (8.5-10.1) 08/05/21 05:46 Total Bilirubin 0.20 mg/dL (0.2-1.0) 08/05/21 05:46 AST 12 Units/L (15-37) L 08/05/21 05:46 ALT 9 Units/L (12-78) L 08/05/21 05:46 Alkaline Phosphatase 73 Units/L (46-116) 08/05/21 05:46 Total Protein 5.5 g/dL (6.4-8.2) L 08/05/21 05:46 Albumin 2.0 g/dL (3.4-5.0) L 08/05/21 05:46 Globulin 3.5 g/dL (2.5-4.5) 08/05/21 05:46 Albumin/Globulin Ratio 0.6 Ratio (1.1-2.1) L 08/05/21 05:46 SARS CoV-2 RNA Rapid PHIL Negative (NEGATIVE) 08/02/21 14:29 Tissue Pathology To follow 08/03/21 15:10 Plan (1) TONI (acute kidney injury): Status: Acute (2) Abdominal wall hernia at previous stoma site: Status: Acute (3) Mechanical gastrointestinal obstruction: Status: Acute (4) Cholelithiasis: Status: Acute Qualifiers: Biliary obstruction: without biliary obstruction Cholelithiasis location: other site Qualified Code(s): K80.80 - Other cholelithiasis without obstruction (5) Hypothyroidism: Status: Acute Qualifiers: Hypothyroidism type: acquired Qualified Code(s): E03.9 - Hypothyroidism, unspecified
--- NOTE | 2021-08-05 10:53 | DR.PROGNOT ---
Hospital Progress Notes - Progress Note for Day of: Progress Note Date: 08/05/21 - Chief Complaint Chief Complaint: post op lparatomy , reoair of incarcerated stoma hernia . doing very well . ileostomy is functioning . incision is clean .. no infection . - Past Medical Family Social History Past Med/Fam/Surg Hx: No changes since H&P Allergies: Allergies No Known Drug Allergies Allergy (Verified 08/02/21 14:20) - Review Of Systems ROS: No change since H&P - Vital Signs Vital Signs: Temperature 97.9 F Pulse Rate [Left Brachial] 81 Pulse Rate 96 Respiratory Rate 18 Blood Pressure [Left Arm] 150/67 Blood Pressure 140/64 O2 Sat by Pulse Oximetry 100 - Physical Exam Oriented: Normal Eyes: Normal Ear: Normal Nose: Normal Throat: Normal Respiratory: Normal Cardiovascular: Normal GI:Auscultation: Normal GI:Palpation: Normal, Other GI: Tenderness: Normal (soft, flat , non tender abdomen .. BS+) Skin: Decreased Turgur Musculoskeletal: Normal Psychiatric: Normal Mood Description: Calm, Appropriate Affect: Normal Speech Pattern: Clear, Appropriate - Laboratory and Diagnostics Result Diagrams: 08/05/21 05:46 08/05/21 05:46 Labs: Laboratory WBC 10.6 X10^3/uL (3.6-10.0) H 08/05/21 05:46 RBC 4.11 X10^6/uL (3.5-5.4) 08/05/21 05:46 Hgb 11.9 g/dL (12.0-16.0) L 08/05/21 05:46 Hct 36.1 % (36.0-47.0) 08/05/21 05:46 MCV 87.8 fL (80.0-100.0) 08/05/21 05:46 MCH 28.9 pg (27.0-34.0) 08/05/21 05:46 MCHC 33.0 g/dL (33.0-35.0) 08/05/21 05:46 RDW 14.0 % (11.6-16.5) 08/05/21 05:46 Plt Count 229 X10^3/uL (150.0-450.0) 08/05/21 05:46 Plt Count Comment Adequate (ADEQUATE) 08/05/21 05:46 MPV 9.3 fL (7.4-11.0) 08/05/21 05:46 Neut % (Auto) 81.0 % (42.0-75.0) H 08/05/21 05:46 Lymph % (Auto) 8.7 % (21.0-51.0) L 08/05/21 05:46 [place] % (Auto) 9.9 % (0.0-13.0) 08/05/21 05:46 Eos % (Auto) 0.0 % (0.9-2.9) L 08/05/21 05:46 Baso % (Auto) 0.4 % (0.2-1.0) 08/05/21 05:46 Neut # (Auto) 8.6 x10^3/uL (2.2-4.8) H 08/05/21 05:46 Lymph # (Auto) 0.9 X10^3/uL (1.3-2.9) L 08/05/21 05:46 [place] # (Auto) 1.0 x10^3/uL (0.3-0.8) H 08/05/21 05:46 Eos # (Auto) 0.0 x10^3/uL (0.0-0.2) 08/05/21 05:46 Baso # (Auto) 0.0 X10^3/uL (0.0-0.1) 08/05/21 05:46 Absolute Nucleated RBC 0.0 /100WBC 08/05/21 05:46 Total Counted 100 08/05/21 05:46 Neutrophils % (Manual) 84 % (39-76) H 08/05/21 05:46 Band Neutrophils % 2 % (0-10) 08/05/21 05:46 Lymphocytes % (Manual) 6 % (13-43) L 08/05/21 05:46 Monocytes % (Manual) 8 % (4-9) 08/05/21 05:46 Plt Morphology Comment Normal (NORMAL) 08/05/21 05:46 RBC Morphology Normal (NORMAL) 08/05/21 05:46 Sodium 138 mmol/L (136-145) 08/05/21 05:46 Corrected Sodium 139 mmol/L (136-145) 08/05/21 05:46 Potassium 4.0 mmol/L (3.5-5.1) 08/05/21 05:46 Chloride 104 mmol/L (98-107) 08/05/21 05:46 Carbon Dioxide 27.7 mmol/L (21-32) 08/05/21 05:46 BUN 20 mg/dL (7-18) H 08/05/21 05:46 Creatinine 0.90 mg/dL (0.55-1.02) 08/05/21 05:46 Est GFR (MDRD) Af Amer > 60 (>60) 08/05/21 05:46 Est GFR (MDRD) Non-Af > 60 (>60) 08/05/21 05:46 Glucose 131 mg/dL (65-99) H 08/05/21 05:46 Lactic Acid 0.9 mmol/L (0.4-2.0) 08/02/21 15:55 Calcium 8.2 mg/dL (8.5-10.1) L 08/05/21 05:46 Corrected Calcium 9.8 mg/dL (8.5-10.1) 08/05/21 05:46 Total Bilirubin 0.20 mg/dL (0.2-1.0) 08/05/21 05:46 AST 12 Units/L (15-37) L 08/05/21 05:46 ALT 9 Units/L (12-78) L 08/05/21 05:46 Alkaline Phosphatase 73 Units/L (46-116) 08/05/21 05:46 Total Protein 5.5 g/dL (6.4-8.2) L 08/05/21 05:46 Albumin 2.0 g/dL (3.4-5.0) L 08/05/21 05:46 Globulin 3.5 g/dL (2.5-4.5) 08/05/21 05:46 Albumin/Globulin Ratio 0.6 Ratio (1.1-2.1) L 08/05/21 05:46 SARS CoV-2 RNA Rapid PHIL Negative (NEGATIVE) 08/02/21 14:29 Tissue Pathology To follow 08/03/21 15:10 - Assessment and Plan 1: SBO 2nd to incarcerate stoma hernia . s/p surgery . to advance diet , D/C [place] . may discharge in am and will follow in 2 weeks . - Problem Patient Problems: Patient Problems Abdominal wall hernia at previous stoma site (Acute) K43.9 Mechanical gastrointestinal obstruction (Acute) K56.609 Cholelithiasis (Acute) K80.20
[2021-08-05] MEDS ORDERED: NS 50 ML IV + SPIKE MINIBAG* 50 ML IV ONE (14:12)
[2021-08-06] MEDS: D5 1/2 NS 1,000 ML 1,000 ML IV SCH ×2 (01:47→09:32)
[2021-08-06] MEDS: ANCEF VIAL 1 GRAM IVP SCH (05:07)
[2021-08-06] MEDS: SYNTHROID 100 mcg TAB PO SCH (05:46)
[2021-08-06 06:17] LABS: BASOPHILS % (AUTO) 0.4 % (0.2-1.0); EOSINOPHILS # (AUTO) 0.1 x10^3/uL (0.0-0.2); HEMATOCRIT 37.6 % (36.0-47.0); HEMOGLOBIN 12.4 g/dL (12.0-16.0); LYMPHOCYTES # (AUTO) 1.5 X10^3/uL (1.3-2.9); LYMPHOCYTES % (AUTO) 18.1 % (21.0-51.0); MEAN CORPUSCULAR HEMOGLOBIN 28.9 pg (27.0-34.0); MEAN CORPUSCULAR HGB CONC 33.1 g/dL (33.0-35.0); MEAN CORPUSCULAR VOLUME 87.4 fL (80.0-100.0); MEAN PLATELET VOLUME 8.6 fL (7.4-11.0); MONOCYTES # (AUTO) 1.2 x10^3/uL (0.3-0.8); MONOCYTES % (AUTO) 14.4 % (0.0-13.0); NEUTROPHILS # (AUTO) 5.3 x10^3/uL (2.2-4.8); NEUTROPHILS % (AUTO) 66.1 % (42.0-75.0); RED CELL DISTRIBUTION WIDTH 13.8 % (11.6-16.5); WHITE BLOOD COUNT 8.1 X10^3/uL (3.6-10.0)
[2021-08-06 06:50] LABS: ALANINE AMINOTRANSFERASE 9 Units/L (12-78); ALBUMIN 1.9 g/dL (3.4-5.0); ALKALINE PHOSPHATASE 69 Units/L (46-116); ASPARTATE AMINO TRANSFERASE 12 Units/L (15-37); BLOOD UREA NITROGEN 11 mg/dL (7-18); CALCIUM 7.8 mg/dL (8.5-10.1); CARBON DIOXIDE 30.5 mmol/L (21-32); CHLORIDE 105 mmol/L (98-107); COR CA(FOR HYPOALB) 9.5 mg/dL (8.5-10.1); CREATININE 0.81 mg/dL (0.55-1.02); SODIUM 139 mmol/L (136-145); TOTAL PROTEIN 5.2 g/dL (6.4-8.2); eGFR NON BLACK RACES > 60 (>60)
[2021-08-06 07:25] LABS: BAND NEUTROPHILS % 2 % (0-10)
[2021-08-06 07:26] LABS: METAMYELOCYTES % 5; MYELOCYTES % 3; PLATELET MORPHOLOGY COMMENT NORMAL (NORMAL)
--- NOTE | 2021-08-06 09:16 | DR.PROGNOT ---
Hospital Progress Notes - Progress Note for Day of: Progress Note Date: 08/06/21 - Chief Complaint Chief Complaint: post op lparatomy , reoair of incarcerated stoma hernia . doing very well . tolerating diet well. ileostomy is functioning . incision is clean .. no infection . - Past Medical Family Social History Past Med/Fam/Surg Hx: No changes since H&P Allergies: Allergies No Known Drug Allergies Allergy (Verified 08/02/21 14:20) - Review Of Systems ROS: No change since H&P - Vital Signs Vital Signs: Temperature 98.6 F Pulse Rate [Left Brachial] 84 Pulse Rate 94 Respiratory Rate 22 Blood Pressure [Left Arm] 140/91 Blood Pressure 140/64 O2 Sat by Pulse Oximetry 99 - Physical Exam Oriented: Normal Eyes: Normal Ear: Normal Nose: Normal Throat: Normal Respiratory: Normal Cardiovascular: Normal GI:Auscultation: Normal GI:Palpation: Normal, Other GI: Tenderness: Normal (soft, flat , non tender abdomen .. BS+) Skin: Decreased Turgur Musculoskeletal: Normal Psychiatric: Normal Mood Description: Calm, Appropriate Affect: Normal Speech Pattern: Clear, Appropriate - Laboratory and Diagnostics Result Diagrams: 08/06/21 05:32 08/06/21 05:32 Labs: Laboratory WBC 8.1 X10^3/uL (3.6-10.0) 08/06/21 05:32 RBC 4.30 X10^6/uL (3.5-5.4) 08/06/21 05:32 Hgb 12.4 g/dL (12.0-16.0) 08/06/21 05:32 Hct 37.6 % (36.0-47.0) 08/06/21 05:32 MCV 87.4 fL (80.0-100.0) 08/06/21 05:32 MCH 28.9 pg (27.0-34.0) 08/06/21 05:32 MCHC 33.1 g/dL (33.0-35.0) 08/06/21 05:32 RDW 13.8 % (11.6-16.5) 08/06/21 05:32 Plt Count 235 X10^3/uL (150.0-450.0) 08/06/21 05:32 Plt Count Comment Adequate (ADEQUATE) 08/06/21 05:32 MPV 8.6 fL (7.4-11.0) 08/06/21 05:32 Neut % (Auto) 66.1 % (42.0-75.0) 08/06/21 05:32 Lymph % (Auto) 18.1 % (21.0-51.0) L 08/06/21 05:32 [place] % (Auto) 14.4 % (0.0-13.0) H 08/06/21 05:32 Eos % (Auto) 1.0 % (0.9-2.9) 08/06/21 05:32 Baso % (Auto) 0.4 % (0.2-1.0) 08/06/21 05:32 Neut # (Auto) 5.3 x10^3/uL (2.2-4.8) H 08/06/21 05:32 Lymph # (Auto) 1.5 X10^3/uL (1.3-2.9) 08/06/21 05:32 [place] # (Auto) 1.2 x10^3/uL (0.3-0.8) H 08/06/21 05:32 Eos # (Auto) 0.1 x10^3/uL (0.0-0.2) 08/06/21 05:32 Baso # (Auto) 0.0 X10^3/uL (0.0-0.1) 08/06/21 05:32 Absolute Nucleated RBC 0.0 /100WBC 08/06/21 05:32 Total Counted 100 08/06/21 05:32 Neutrophils % (Manual) 54 % (39-76) 08/06/21 05:32 Band Neutrophils % 2 % (0-10) 08/06/21 05:32 Lymphocytes % (Manual) 17 % (13-43) 08/06/21 05:32 Monocytes % (Manual) 18 % (4-9) H 08/06/21 05:32 Eosinophils % (Manual) 1 % (0-6) 08/06/21 05:32 Metamyelocytes % 5 08/06/21 05:32 Myelocytes % 3 08/06/21 05:32 Plt Morphology Comment Normal (NORMAL) 08/06/21 05:32 RBC Morphology Normal (NORMAL) 08/06/21 05:32 Sodium 139 mmol/L (136-145) 08/06/21 05:32 Corrected Sodium TNP 08/06/21 05:32 Potassium 3.4 mmol/L (3.5-5.1) L 08/06/21 05:32 Chloride 105 mmol/L (98-107) 08/06/21 05:32 Carbon Dioxide 30.5 mmol/L (21-32) 08/06/21 05:32 BUN 11 mg/dL (7-18) 08/06/21 05:32 Creatinine 0.81 mg/dL (0.55-1.02) 08/06/21 05:32 Est GFR (MDRD) Af Amer > 60 (>60) 08/06/21 05:32 Est GFR (MDRD) Non-Af > 60 (>60) 08/06/21 05:32 Glucose 106 mg/dL (65-99) H 08/06/21 05:32 Lactic Acid 0.9 mmol/L (0.4-2.0) 08/02/21 15:55 Calcium 7.8 mg/dL (8.5-10.1) L 08/06/21 05:32 Corrected Calcium 9.5 mg/dL (8.5-10.1) 08/06/21 05:32 Total Bilirubin 0.20 mg/dL (0.2-1.0) 08/06/21 05:32 AST 12 Units/L (15-37) L 08/06/21 05:32 ALT 9 Units/L (12-78) L 08/06/21 05:32 Alkaline Phosphatase 69 Units/L (46-116) 08/06/21 05:32 Total Protein 5.2 g/dL (6.4-8.2) L 08/06/21 05:32 Albumin 1.9 g/dL (3.4-5.0) L 08/06/21 05:32 Globulin 3.3 g/dL (2.5-4.5) 08/06/21 05:32 Albumin/Globulin Ratio 0.6 Ratio (1.1-2.1) L 08/06/21 05:32 SARS CoV-2 RNA Rapid PHIL Negative (NEGATIVE) 08/02/21 14:29 Tissue Pathology To follow 08/03/21 15:10 - Assessment and Plan 1: SBO 2nd to incarcerate stoma hernia . s/p surgery . to advance diet ,. may discharge today and will follow in 2 weeks . same colostomy care .. - Problem Patient Problems: Patient Problems Abdominal wall hernia at previous stoma site (Acute) K43.9 Mechanical gastrointestinal obstruction (Acute) K56.609 Cholelithiasis (Acute) K80.20
[2021-08-06] MEDS: LEVAQUIN PREMIX IV 250 MG 250 MG/50 ML BAG IV SCH (09:31)
[2021-08-06] MEDS: LOVENOX INJ 40 MG SYR SC SCH (09:56)
[2021-08-06 10:52] VITALS: BP 144/78
--- NOTE | 2021-08-06 12:15 | W.DIS.FURT ---
Summary of Discharge Discharge Summary of Date Date of Exam: 08/06/21 Admission Date Date of Admission: 08/03/21 Admission Diagnosis Patient Problems (Updated 08/19/21 @ 11:27 by Nicole Polanco) Abdominal wall hernia at previous stoma site (Acute) K43.9 Mechanical gastrointestinal obstruction (Acute) K56.609 Hospital Course: Ms Borjas is an 85y/o female with a hx of colostomy presented with worsening abdominal pain and no output from the ostomy for the past 3 days. She also reports increased abdominal distension. Denies nausea or vomiting. Denies fever or chills. CTAP showed peristomal hernia with mechanical obstruction. Dr Mcgowan was contacted in the ER and patient was admitted for further treatment. She was kept NPO, started on IVF and pain control. Patient is not a good historian and is not able to state the reason why she has colostomy. She states she has had it for a long time and never had any issues. Patient was taken to the OR for repair of incarcerated stoma hernia with lysis of adhesions and laparotomy. She did well post-op. She was continued to pain control, hydration and IV abx. She had a MITRA drain and output was monitored daily. She was doing well and able to tolerate PO intake. Her ostomy was working with output. She was stable for discharge and will follow up with PCP and Dr Mcgowan as scheduled. Vital Signs: Vital Signs (72 hours) 08/03/21 15:59 08/03/21 16:04 08/03/21 16:09 Temperature 98.8 F Pulse Rate 98 H 94 H 97 H Pulse Rate [Left Brachial] Respiratory Rate 18 18 19 Blood Pressure 144/65 138/72 140/61 Blood Pressure [Left Arm] O2 Sat by Pulse Oximetry 98 95 100 08/03/21 16:14 08/03/21 16:19 08/03/21 16:20 Temperature Pulse Rate 96 H 96 H Pulse Rate [Left Brachial] Respiratory Rate 18 18 19 Blood Pressure 126/60 136/63 Blood Pressure [Left Arm] O2 Sat by Pulse Oximetry 97 95 08/03/21 16:24 08/03/21 16:29 08/03/21 16:34 Temperature Pulse Rate 95 H 94 H 93 H Pulse Rate [Left Brachial] Respiratory Rate 19 18 20 Blood Pressure 132/56 140/63 145/63 Blood Pressure [Left Arm] O2 Sat by Pulse Oximetry 95 95 95 08/03/21 16:35 08/03/21 16:39 08/03/21 16:44 Temperature Pulse Rate 92 H 93 H Pulse Rate [Left Brachial] Respiratory Rate 19 19 18 Blood Pressure 139/62 140/64 Blood Pressure [Left Arm] O2 Sat by Pulse Oximetry 96 96 08/03/21 16:55 08/03/21 17:05 08/03/21 17:10 Temperature 97.4 F L 98.5 F Pulse Rate Pulse Rate [Left Brachial] 95 H 95 H Respiratory Rate 16 16 18 Blood Pressure Blood Pressure [Left Arm] 131/59 128/60 O2 Sat by Pulse Oximetry 96 96 08/03/21 17:25 08/03/21 18:46 08/03/21 18:55 Temperature 98.3 F 98.4 F 98.4 F Pulse Rate Pulse Rate [Left Brachial] 96 H 97 H 97 H Respiratory Rate 18 18 18 Blood Pressure Blood Pressure [Left Arm] 125/60 133/63 137/65 O2 Sat by Pulse Oximetry 97 97 97 08/03/21 19:50 08/03/21 20:32 08/03/21 20:47 Temperature 98.4 F Pulse Rate 96 H Pulse Rate [Left Brachial] 96 H Respiratory Rate 20 16 Blood Pressure Blood Pressure [Left Arm] 124/72 O2 Sat by Pulse Oximetry 95 95 08/03/21 20:50 08/03/21 21:17 08/03/21 21:50 Temperature 98.0 F 98.0 F Pulse Rate Pulse Rate [Left Brachial] 99 H 101 H Respiratory Rate 20 16 20 Blood Pressure Blood Pressure [Left Arm] 135/70 121/75 O2 Sat by Pulse Oximetry 96 100 08/03/21 23:56 08/04/21 02:40 08/04/21 03:10 Temperature 99.0 F 98.4 F Pulse Rate Pulse Rate [Left Brachial] 97 H 81 Respiratory Rate 20 16 16 Blood Pressure Blood Pressure [Left Arm] 120/68 140/75 O2 Sat by Pulse Oximetry 97 97 08/04/21 08:00 08/04/21 09:08 08/04/21 09:38 Temperature 98.0 F Pulse Rate Pulse Rate [Left Brachial] 80 Respiratory Rate 20 18 18 Blood Pressure Blood Pressure [Left Arm] 135/63 O2 Sat by Pulse Oximetry 98 08/04/21 12:00 08/04/21 16:00 08/04/21 19:50 Temperature 98.9 F 98.5 F Pulse Rate Pulse Rate [Left Brachial] 82 80 Respiratory Rate 20 20 18 Blood Pressure Blood Pressure [Left Arm] 150/79 133/63 O2 Sat by Pulse Oximetry 98 99 08/04/21 20:00 08/04/21 20:20 08/04/21 23:55 Temperature 98.9 F 98.7 F Pulse Rate Pulse Rate [Left Brachial] 81 83 Respiratory Rate 18 18 18 Blood Pressure Blood Pressure [Left Arm] 143/64 160/65 O2 Sat by Pulse Oximetry 98 99 08/05/21 03:08 08/05/21 03:38 08/05/21 04:00 Temperature 98.5 F Pulse Rate Pulse Rate [Left Brachial] 78 Respiratory Rate 18 18 18 Blood Pressure Blood Pressure [Left Arm] 134/67 O2 Sat by Pulse Oximetry 100 08/05/21 08:00 08/05/21 12:00 08/05/21 16:00 Temperature 97.9 F 98.0 F 98.6 F Pulse Rate Pulse Rate [Left Brachial] 81 80 92 H Respiratory Rate 18 18 18 Blood Pressure Blood Pressure [Left Arm] 150/67 160/79 134/72 O2 Sat by Pulse Oximetry 100 99 90 L 08/05/21 20:00 08/06/21 00:00 08/06/21 04:00 Temperature 98.7 F 98.2 F 98.6 F Pulse Rate 94 H Pulse Rate [Left Brachial] 100 H 97 H 84 Respiratory Rate 17 20 22 Blood Pressure Blood Pressure [Left Arm] 120/56 132/73 140/91 O2 Sat by Pulse Oximetry 92 L 98 99 08/06/21 08:00 Temperature 98.6 F Pulse Rate Pulse Rate [Left Brachial] 86 Respiratory Rate 18 Blood Pressure Blood Pressure [Left Arm] 144/78 O2 Sat by Pulse Oximetry 97 Labs: Laboratory Last Values WBC 8.1 X10^3/uL (3.6-10.0) 08/06/21 05:32 RBC 4.30 X10^6/uL (3.5-5.4) 08/06/21 05:32 Hgb 12.4 g/dL (12.0-16.0) 08/06/21 05:32 Hct 37.6 % (36.0-47.0) 08/06/21 05:32 MCV 87.4 fL (80.0-100.0) 08/06/21 05:32 MCH 28.9 pg (27.0-34.0) 08/06/21 05:32 MCHC 33.1 g/dL (33.0-35.0) 08/06/21 05:32 RDW 13.8 % (11.6-16.5) 08/06/21 05:32 Plt Count 235 X10^3/uL (150.0-450.0) 08/06/21 05:32 Plt Count Comment Adequate (ADEQUATE) 08/06/21 05:32 MPV 8.6 fL (7.4-11.0) 08/06/21 05:32 Neut % (Auto) 66.1 % (42.0-75.0) 08/06/21 05:32 Lymph % (Auto) 18.1 % (21.0-51.0) L 08/06/21 05:32 [place] % (Auto) 14.4 % (0.0-13.0) H 08/06/21 05:32 Eos % (Auto) 1.0 % (0.9-2.9) 08/06/21 05:32 Baso % (Auto) 0.4 % (0.2-1.0) 08/06/21 05:32 Neut # (Auto) 5.3 x10^3/uL (2.2-4.8) H 08/06/21 05:32 Lymph # (Auto) 1.5 X10^3/uL (1.3-2.9) 08/06/21 05:32 [place] # (Auto) 1.2 x10^3/uL (0.3-0.8) H 08/06/21 05:32 Eos # (Auto) 0.1 x10^3/uL (0.0-0.2) 08/06/21 05:32 Baso # (Auto) 0.0 X10^3/uL (0.0-0.1) 08/06/21 05:32 Absolute Nucleated RBC 0.0 /100WBC 08/06/21 05:32 Total Counted 100 08/06/21 05:32 Neutrophils % (Manual) 54 % (39-76) 08/06/21 05:32 Band Neutrophils % 2 % (0-10) 08/06/21 05:32 Lymphocytes % (Manual) 17 % (13-43) 08/06/21 05:32 Monocytes % (Manual) 18 % (4-9) H 08/06/21 05:32 Eosinophils % (Manual) 1 % (0-6) 08/06/21 05:32 Metamyelocytes % 5 08/06/21 05:32 Myelocytes % 3 08/06/21 05:32 Plt Morphology Comment Normal (NORMAL) 08/06/21 05:32 RBC Morphology Normal (NORMAL) 08/06/21 05:32 Sodium 139 mmol/L (136-145) 08/06/21 05:32 Corrected Sodium TNP 08/06/21 05:32 Potassium 3.4 mmol/L (3.5-5.1) L 08/06/21 05:32 Chloride 105 mmol/L (98-107) 08/06/21 05:32 Carbon Dioxide 30.5 mmol/L (21-32) 08/06/21 05:32 BUN 11 mg/dL (7-18) 08/06/21 05:32 Creatinine 0.81 mg/dL (0.55-1.02) 08/06/21 05:32 Est GFR (MDRD) Af Amer > 60 (>60) 08/06/21 05:32 Est GFR (MDRD) Non-Af > 60 (>60) 08/06/21 05:32 Glucose 106 mg/dL (65-99) H 08/06/21 05:32 Lactic Acid 0.9 mmol/L (0.4-2.0) 08/02/21 15:55 Calcium 7.8 mg/dL (8.5-10.1) L 08/06/21 05:32 Corrected Calcium 9.5 mg/dL (8.5-10.1) 08/06/21 05:32 Total Bilirubin 0.20 mg/dL (0.2-1.0) 08/06/21 05:32 AST 12 Units/L (15-37) L 08/06/21 05:32 ALT 9 Units/L (12-78) L 08/06/21 05:32 Alkaline Phosphatase 69 Units/L (46-116) 08/06/21 05:32 Total Protein 5.2 g/dL (6.4-8.2) L 08/06/21 05:32 Albumin 1.9 g/dL (3.4-5.0) L 08/06/21 05:32 Globulin 3.3 g/dL (2.5-4.5) 08/06/21 05:32 Albumin/Globulin Ratio 0.6 Ratio (1.1-2.1) L 08/06/21 05:32 SARS CoV-2 RNA Rapid PHIL Negative (NEGATIVE) 08/02/21 14:29 Tissue Pathology To follow 08/03/21 15:10 Reason For Visit: BOWEL OBSTRUCTION, PERISTOMAL HEMATOMA Discharge Date Discharge Date: 08/06/21 Discharge Diagnosis All Active Problems (Updated 08/19/21 @ 11:27 by Nicole Polanco) TONI (acute kidney injury) (Acute) Hypothyroidism (Chronic) Abdominal wall hernia at previous stoma site (Acute) Mechanical gastrointestinal obstruction (Acute) Plan of Treatment: Continue with present treatment and follow up plan. Pt is to keep follow up appointment as instructed and take medications as ordered. Discharge Medications Discharge Medications: No Known Drug Allergies Allergy (Verified 08/02/21 14:20) CONTINUE taking the following medications levothyroxine 100 mcg PO DAILY 08/02/21 [History] Follow up and Referral Follow Up: 1 Week (PCP) Discharge Disposition Assessment: No acute distress noted at time of discharge. Discharge Disposition: Home Discharge Condition: Stable Discharge Plan Discharge Plan Hospital Course: Ms Borjas is an 85y/o female with a hx of colostomy presented with worsening abdominal pain and no output from the ostomy for the past 3 days. She also reports increased abdominal distension. Denies nausea or vomiting. Denies fever or chills. CTAP showed peristomal hernia with mechanical obstruction. Dr Mcgowan was contacted in the ER and patient was admitted for further treatment. She was kept NPO, started on IVF and pain control. Patient is not a good historian and is not able to state the reason why she has colostomy. She states she has had it for a long time and never had any issues. Patient was taken to the OR for repair of incarcerated stoma hernia with lysis of adhesions and laparotomy. She did well post-op. She was continued to pain control, hydration and IV abx. She had a MITRA drain and output was monitored daily. She was doing well and able to tolerate PO intake. Her ostomy was working with output. She was stable for discharge and will follow up with PCP and Dr Mcgowan as scheduled. Patient Disposition: HOME HEALTH SERVICE Condition: Stable Health Concerns: Post Hospitalization: new medications and changes needed to prevent readmission or further decline. Pt educated and given instructions on all concerns. Care Plan Goals: Problem: Infection Goal: Temperature within normal limits. Resolved infection. Instructions: Follow provided instructions. Follow up with primary physician as directed. Contact primary care physician or report to the closest Emergency Room if condition worsens. Plan of Treatment: Continue with present treatment and follow up plan. Pt is to keep follow up appointment as instructed and take medications as ordered. Assessment: No acute distress noted at time of discharge. Prescription drug monitoring program results: PDMP reviewed and no concerns identified Prescriptions: Continued levothyroxine 100 mcg tablet 100 mcg PO DAILY RF: 0 Follow ups/Referrals Follow ups/Referrals: KATHERINE JON [STAFF PHYSICIAN] - 08/20/21 8:30 am (Hospital follow up in 10 days ) Brown Hurst [REFERRING] - 08/13/21 10:30 am Instructions Instructions: Bowel Obstruction, [id number], Wound Infection, [id number], How to Change Your Wound Dressing, [id number], Hernia, Adult, [id number], Small Bowel Obstruction, Laparoscopic Ventral Hernia Repair, Care After
== END 2021-08-06 14:00 | disposition home health service (06) | DRG 389 ==
LOC: ER 14:26 → MED/SURG 14:26 → OBSVTOIN 17:10 → MED/SURG 18:08
PROVIDERS: ADMIT Family Medicine; ATTEND Family Medicine